=== PATIENT | male | born 1950 ===

== ENCOUNTER 2021-07-06 11:16 | Outpatient (CLI) | payer MEDICARE ==
--- NOTE | 2021-07-06 11:42 | XRAY Report ---
PROCEDURE: Shoulder 3 View LT INDICATIONS: LT SHOULDER PX M25.512 TECHNIQUE: Views of the shoulder were acquired. COMPARISON: None. FINDINGS: Bones: No fracture or dislocation. The left acromioclavicular joint has mild degenerative changes. T he left glenohumeral joint has loss of the joint space with osteophytes of the inferior glenoid and i nferior humeral articular surface. Soft tissues: No suspicious soft tissue calcifications. IMPRESSION: Degenerative changes of the left shoulder consistent with osteoarthritis. Reviewed by: Isrrael Lubin on 07/06/2021 11:41 AM PDT Approved by: Isrrael Lubin on 07/06/2021 11:41 AM PDT Station ID: [id number]
== END 2021-07-06 11:17 | disposition home or self-care (01) ==
LOC: DI 11:16
PROVIDERS: ATTEND Family Medicine
DX: M25.512 Pain in left shoulder (principal); M19.012 Primary osteoarthritis, left shoulder

== ENCOUNTER 2022-04-08 11:08 | Outpatient (CLI) | payer MEDICARE ==
--- NOTE | 2022-04-08 15:24 | XRAY Report ---
PROCEDURE: Chest 2 View X-Ray INDICATIONS: EXPOSURE TO AGENT ORANGE TECHNIQUE: 2 view(s) of the chest. COMPARISON: None. FINDINGS: Surgical changes and devices: None. Lungs and pleura: No pleural effusions or pneumothorax. Lungs are clear. Eventration of the right hemidiaphragm is noted. Mediastinum: Mediastinal contours are normal. Heart size is normal. Bones and chest wall: No suspicious bony abnormalities. Soft tissues appear unremarkable. There ar e multilevel degenerative changes. IMPRESSION: 1. No acute abnormality of the chest. 2. Eventration of the right hemidiaphragm. Reviewed by: Isrrael Lubin on 04/08/2022 3:22 PM PDT Approved by: Isrrael Lubin on 04/08/2022 3:22 PM PDT Station ID: [id number]
--- NOTE | 2022-04-08 17:59 | XRAY Report ---
PROCEDURE: Lumbar Spine 2 View INDICATIONS: EXPOSURE TO AGENT ORANGE TECHNIQUE: 2 views of the lumbar spine were acquired. COMPARISON: None. FINDINGS: Bones: 5 ygl-dno-muwhfca vertebrae are present. There is straightening of normal lumbar lordosis. 5 mm retrolisthesis of L2 on L3 is seen. 3 mm retrolisthesis of L3 on L4 is also noted. Loss of disc h eight, degenerative endplate changes and bilateral facet arthrosis throughout lumbar spine is seen mo re prominent at L4-5 and L5-S1 levels. No vertebral body compression fractures. No suspicious bony lesions. Soft tissues: Overlying bowel gas pattern is normal. No suspicious soft tissue calcifications. IMPRESSION: Grade 1 retrolisthesis at L2-3 and L3-4 levels as above. No acute compression fracture. Degenerative disc disease throughout lumbar spine. No suspicious intraosseous lesion. Reviewed by: Yung Lan MD on 04/08/2022 5:58 PM PDT Approved by: Yung Lan MD on 04/08/2022 5:58 PM PDT Station ID: [id number]
== END 2022-04-08 11:09 | disposition home or self-care (01) ==
LOC: DI.S 11:08
PROVIDERS: ATTEND Nurse Practitioner Family
DX: Z77.29 Contact with and (suspected) exposure to other hazardous substances (principal); Q79.1 Other congenital malformations of diaphragm; M43.16 Spondylolisthesis, lumbar region; M47.816 Spondylosis without myelopathy or radiculopathy, lumbar region

== ENCOUNTER 2022-04-20 08:44 | Outpatient (CLI) | payer MEDICARE ==
--- NOTE | 2022-04-20 11:59 | Ultrasound Report ---
PROCEDURE: Testicle INDICATIONS: Right-sided palpable mass. TECHNIQUE: Real-time scanning was performed of the scrotum and testicles, with image documentation. Color and p ulse Doppler interrogation was performed of both testicles. COMPARISON: None. FINDINGS: Right: Testicle is normal in size at 3.2 x 1.7 x 2.9 cm, and homogenous in echotexture. Epididymis is unremarkable in overall size and morphology. No hydrocele. A varicocele is present with pampinifo rm plexus veins measuring up to 3 mm. Overlying scrotal skin is normal in thickness. Left: Testicle is normal in size at 5.0 x 2.0 x 3.4 cm, and homogeneous in echotexture. Epididymis is unremarkable in overall size and morphology. Several epididymal head cysts are present, largest me asuring up to 8 mm. No hydrocele or varicoceles. Overlying scrotal skin is normal in thickness. Doppler: Color and pulse Doppler demonstrate normal and symmetric arterial flow in both testicles. IMPRESSION: 1. No testicular mass visualized. 2. Small right varicocele. It is unclear if this finding corresponds to the palpable finding indicate d by the patient. The clinical significance of this finding is uncertain. In the setting of isolated right varicocele, CT of the abdomen and pelvis could be obtained to assess for an obstructing retrope ritoneal lesion. Reviewed by: Karthikeyan Duran MD on 04/20/2022 11:58 AM PDT Approved by: Karthikeyan Duran MD on 04/20/2022 11:58 AM PDT Station ID: [id number]
--- NOTE | 2022-04-20 15:15 | Ultrasound Report ---
PROCEDURE: Aorta Screening INDICATIONS: SCREENING FOR AAA, SCROTAL/GROIN MASS TECHNIQUE: Real time scanning was performed of the aorta and iliac arteries, with image documentatio n. COMPARISON: None FINDINGS: Proximal abdominal aorta measures 2.5 cm in diameter. Mid abdominal aorta measures 2.8 cm in diameter. Distal abdominal aorta measures 2 cm in diameter. Bilateral common iliac arteries measure 1.1-1.2 cm in diameter. IMPRESSION: No aortic or common iliac artery aneurysm. Reviewed by: Del Castro MD on 04/20/2022 3:14 PM PDT Approved by: Del Castro MD on 04/20/2022 3:14 PM PDT Station ID: [id number]
--- NOTE | 2022-04-20 16:15 | Ultrasound Report ---
PROCEDURE: Pelvic Limited or F/U INDICATIONS: SCREENING FOR AAA, SCROTAL/GROIN MASS TECHNIQUE: Real-time transabdominal scanning was performed of the left inguinal region, with image documentation . COMPARISON: None. FINDINGS: A fat-containing left inguinal hernia is seen that is partially reducible compression. Abdominal wall defect measures 1.9 cm. IMPRESSION: Partially reducible fat-containing left inguinal hernia. Reviewed by: Karthikeyan Kapoor MD on 04/20/2022 4:14 PM PDT Approved by: Karthikeyan Kapoor MD on 04/20/2022 4:14 PM PDT Station ID: [id number]
== END 2022-04-20 08:45 | disposition home or self-care (01) ==
LOC: DI 08:44
PROVIDERS: ATTEND Nurse Practitioner Family
DX: I86.1 Scrotal varices (principal); N50.89 Other specified disorders of the male genital organs; Z13.6 Encounter for screening for cardiovascular disorders; Z77.098 Contact with and (suspected) exposure to other hazardous, chiefly nonmedicinal, chemicals; Z87.891 Personal history of nicotine dependence; K40.90 Unilateral inguinal hernia, without obstruction or gangrene, not specified as recurrent

== ENCOUNTER 2023-07-28 08:00 | Outpatient (CLI) | payer MEDICARE, OTHER ==
--- NOTE | 2023-07-28 19:30 | XRAY Report ---
PROCEDURE: Abdomen 2 View X-Ray INDICATIONS: IRRITABLE BOWEL SYNDROME W/DIARRHEA TECHNIQUE: 2 views of the abdomen were acquired. COMPARISON: None. FINDINGS: Surgical changes and devices: Surgical clips noted in the prostate Bowel: No pneumoperitoneum. The bowel gas pattern is normal. Stool load within normal limits. Soft tissues: No masses; visualized solid organ contours appear normal in size. No suspicious abdom inal calcifications. Bones: No suspicious bony abnormalities. IMPRESSION: Unremarkable abdominal radiographs Reviewed by: Anil Mccain MD on 07/28/2023 6:28 PM AKDT Approved by: Anil Mccain MD on 07/28/2023 6:28 PM AKDT Station ID: [id number]
== END 2023-07-28 23:59 | disposition home or self-care (01) ==
LOC: DI.S 08:00
PROVIDERS: ATTEND Physician Assistant
DX: K58.0 Irritable bowel syndrome with diarrhea (principal)

== ENCOUNTER 2023-08-18 09:52 | Outpatient (CLI) | payer MEDICARE, OTHER ==
--- NOTE | 2023-08-18 11:46 | XRAY Report ---
PROCEDURE: Hip w/Pelvis 2-3V RT INDICATIONS: PAIN IN RIGHT HIP JOINT TECHNIQUE: AP pelvis with lateral view(s) of the right hip(s). COMPARISON: None. FINDINGS: Bones: No fractures or dislocations. No suspicious bony lesions. Nonuniform joint space with oste ophytosis of the acetabulum. Soft tissues: No suspicious soft tissue calcifications or masses. Surgical clips project over the pubic symphysis. IMPRESSION: Mild right hip osteoarthritis. Kellgren-Huy scale of osteoarthritis: 2. Reviewed by: Mukul Madison on 08/18/2023 11:44 AM PST Approved by: Mukul Madison on 08/18/2023 11:44 AM PST Station ID: [id number]
== END 2023-08-18 09:53 | disposition home or self-care (01) ==
LOC: DI.S 09:52
PROVIDERS: ATTEND Nurse Practitioner Family
DX: M16.11 Unilateral primary osteoarthritis, right hip (principal)